=== PATIENT | female | born 1980 | race Caucasian/White ===

== ENCOUNTER 2023-08-18 14:55 | Emergency (ER) | payer MEDICAID, OTHER ==
[~2023-08-18] VITALS: Ht 172.7 cm; Wt 82.6 kg
--- NOTE | 2023-08-18 15:07 | ED Abdominal Pain ---
General Chief Complaint: Abdominal/GI Problems Stated Complaint: AB PAIN Source of Information: Patient, EMS Exam Limitations: No Limitations History of Present Illness Date Seen by Provider: Aug 18, 2023 Time Seen by Provider: 14:54 Initial Comments 42-year-old female presents to the emergency department today for abdominal pain. She states symptoms present since Saturday and she points to her lower pelvic region as a source of the pain. She states she is also had diffuse diarrhea multiple times per day. No fevers or chills. No nausea or vomiting. Denies stating she has not had sex in 3 years. No vaginal symptoms. No urinary symptoms. She has not had any abdominal surgeries. She reportedly was looking for "pain relief" and went to her neighbor's house and took 2 blue capsules with letters printed on them. She does not know what this was. All other systems reviewed and negative except documented per HPI. Voice recognition software was used to help create this chart Allergies and Home Medications Allergies Coded Allergies: sulfamethoxazole (Verified Allergy, Intermediate, 08/18/23) CAUSES BLISTERS trimethoprim (Verified Allergy, Intermediate, 08/18/23) CAUSES BLISTERS Patient Home Medication List Home Medication List Reviewed: Yes Review of Systems Review of Systems Constitutional: see HPI Past Cpqflsi-[id number]-[id number] Hx Patient Social History Tobacco Use?: No Use of E-Cig and/or Vaping dev: No Substance use?: No Alcohol Use?: No Physical Exam Vital Signs Vital Signs - First Documented 08/18/23 14:56 Temp 36.2 Pulse 65 Resp 18 B/P (MAP) 80/49 (59) O2 Delivery Room Air Capillary Refill : Height/Weight/BMI Height: '" Weight: lbs. oz. kg; BMI Method: General Appearance: other (Patient is writhing in the bed.) HEENT: normal ENT inspection, pharynx normal Neck: non-tender, full range of motion, supple Respiratory: chest non-tender, lungs clear, normal breath sounds, no respiratory distress, no accessory muscle use Cardiovascular: regular rate, rhythm, no murmur Gastrointestinal: soft, other (Abdominal exam is inconsistent. She points to her lower abdominal, upper pelvic region as the source of her pain. When I press on this area and she is talking she does not seem to have any pain however when she is not talking she seems to have severe pain even with light pressure. There is no obvious rebound or guarding. No mass organomegaly. No skin changes.) Extremities: non-tender, normal capillary refill Back: no CVA tenderness Neurologic/Psychiatric: alert, oriented x 3 Skin: normal color, warm/dry Progress/Results/Core Measures Results/Orders Lab Results Laboratory Tests Test 08/18/23 15:05 08/18/23 16:21 Range/Units White Blood Count 14.1 H 4.3-11.0 10^3/uL Red Blood Count 5.05 3.80-5.11 10^6/uL Hemoglobin 10.7 L 11.5-16.0 g/dL Hematocrit 37 35-52 % Mean Corpuscular Volume 73 L 80-99 fL Mean Corpuscular Hemoglobin 21 L 25-34 pg Mean Corpuscular Hemoglobin Concent 29 L 32-36 g/dL Red Cell Distribution Width 17.4 H 10.0-14.5 % Platelet Count 564 H 130-400 10^3/uL Mean Platelet Volume 11.0 9.0-12.2 fL Immature Granulocyte % (Auto) 0 % Neutrophils (%) (Auto) 63 42-75 % Lymphocytes (%) (Auto) 31 12-44 % Monocytes (%) (Auto) 4 0-12 % Eosinophils (%) (Auto) 2 0-10 % Basophils (%) (Auto) 0 0-10 % Neutrophils # (Auto) 8.8 H 1.8-7.8 X 10^3 Lymphocytes # (Auto) 4.4 H 1.0-4.0 X 10^3 Monocytes # (Auto) 0.6 0.0-1.0 X 10^3 Eosinophils # (Auto) 0.2 0.0-0.3 10^3/uL Basophils # (Auto) 0.0 0.0-0.1 10^3/uL Immature Granulocyte # (Auto) 0.0 0.0-0.1 10^3/uL Neutrophils % (Manual) 54 % Lymphocytes % (Manual) 42 % Monocytes % (Manual) 2 % Eosinophils % (Manual) 2 % Basophils % (Manual) 0 % Band Neutrophils 0 % Anisocytosis SLIGHT Elliptocytes SLIGHT Sodium Level 139 135-145 MMOL/L Potassium Level 3.3 L 3.6-5.0 MMOL/L Chloride Level 107 98-107 MMOL/L Carbon Dioxide Level 21 21-32 MMOL/L Anion Gap 11 5-14 MMOL/L Blood Urea Nitrogen 15 7-18 MG/DL Creatinine 0.79 0.60-1.30 MG/DL Estimat Glomerular Filtration Rate 97 BUN/Creatinine Ratio 19 Glucose Level 188 H 70-105 MG/DL Calcium Level 9.5 8.5-10.1 MG/DL Corrected Calcium 9.4 8.5-10.1 MG/DL Total Bilirubin 0.6 0.1-1.0 MG/DL Aspartate Amino Transf (AST/SGOT) 18 5-34 U/L Alanine Aminotransferase (ALT/SGPT) 11 0-55 U/L Alkaline Phosphatase 80 40-136 U/L Total Protein 7.5 6.4-8.2 GM/DL Albumin 4.1 3.2-4.5 GM/DL Lipase 12 8-78 U/L Serum Test, Qualitative NEGATIVE NEGATIVE Urine Color YELLOW Urine Clarity CLEAR Urine pH 5.5 5-9 Urine Specific [place] 1.020 1.016-1.022 Urine Protein NEGATIVE NEGATIVE Urine Glucose (UA) NEGATIVE NEGATIVE Urine Ketones NEGATIVE NEGATIVE Urine Nitrite NEGATIVE NEGATIVE Urine Bilirubin NEGATIVE NEGATIVE Urine Urobilinogen 0.2 < = 1.0 MG/DL Urine Leukocyte Esterase NEGATIVE NEGATIVE Urine RBC (Auto) NEGATIVE NEGATIVE Urine RBC RARE /HPF Urine WBC NONE /HPF Urine Squamous Epithelial Cells RARE /HPF Urine Crystals NONE /LPF Urine Bacteria NEGATIVE /HPF Urine Casts NONE /LPF Urine Mucus NEGATIVE /LPF Urine Culture Indicated NO My Orders Orders - BRIANNAHUGO DO Comprehensive Metabolic Panel (08/18/23 15:03) Lipase (08/18/23 15:03) Hcg,Qualitative Serum (08/18/23 15:03) Ua Culture If Indicated (08/18/23 15:03) Cbc With Automated Diff (08/18/23 15:03) Ct Abdomen/Pelvis W (08/18/23 15:03) Ketorolac Injection (Ketorolac Injection (08/18/23 15:15) Iohexol Injection (Omnipaque 350 Mg/Ml 1 (08/18/23 15:15) Received Contrast (Hold Metformin- Contr (08/18/23 15:15) Ns (Ivpb) 100 Ml (Sodium Chloride 0.9% 1 (08/18/23 15:15) Dicyclomine Injection (Dicyclomine Injec (08/18/23 15:10) Dicyclomine Injection (Dicyclomine Injec (08/18/23 15:12) Manual Differential (08/18/23 15:05) Iv/Invasive Line Insertion .IV INSERT (08/18/23 15:29) Ns Iv 1000 Ml (Ns Iv 1000 Ml) (08/18/23 15:29) Medications Given in ED Current Medications Medications Dose Ordered Sig/Jorge Route Start Time Stop Time Status Last Admin Dose Admin Iohexol 100 ml ONCE ONCE IV 08/18/23 15:15 08/18/23 15:18 DC 08/18/23 15:48 80 ML Ketorolac Tromethamine 15 mg ONCE ONCE IVP 08/18/23 15:15 08/18/23 15:16 DC 08/18/23 15:13 15 MG Sodium Chloride 100 ml ONCE ONCE IV 08/18/23 15:15 08/18/23 15:18 DC 08/18/23 15:48 100 ML Vital Signs/I&O 08/18/23 14:56 Temp 36.2 Pulse 65 Resp 18 B/P (MAP) 80/49 (59) O2 Delivery Room Air Departure Communication (Admissions) Patient is hemodynamically stable. She has a nonsurgical abdominal exam. test is negative and CT scan obtained. This shows likely enteritis and mass in the uterus consistent with likely fibroid but carcinoma cannot be ruled out. Her pain is greatly improved with IM Bentyl and IV Toradol. She is tolerating p.o. without difficulty. Her labs are reassuring and there is some mild hypokalemia. To be discharged home with Bentyl, Toradol and gynecology follow-up. Impression Primary Impression: Enteritis Additional Impression: Uterine fibroid Qualified Codes: D25.9 - Leiomyoma of uterus, unspecified Disposition: 01 HOME, SELF-CARE Condition: Stable Departure-Patient Inst. Referrals: ANDRE AMADO DO Patient Instructions: Uterine fibroids, Viral Gastroenteritis, Adult (DC) Add. Discharge Instructions: Increase your fluids at home and rest. Use the Bentyl as needed for abdominal pain. Follow-up by calling to schedule an appointment with Dr. AMADO, gynecology, regarding your uterine fibroids. Emergency department for any severe concerns. All discharge instructions reviewed with patient and/or family. Voiced understanding. Scripts Ketorolac Tromethamine (Ketorolac Tromethamine) 10 Mg Tablet 10 MG PO TID for Pain for 3 Days, #9 TAB Prov: HUGO REED DO 08/18/23 Dicyclomine HCl (Dicyclomine HCl) 10 Mg Capsule 10 MG PO TID for pa for 5 Days, #15 CAP Prov: HUGO REED DO 08/18/23 HUGO REED DO Aug 18, 2023 15:07
[2023-08-18] MEDS ORDERED: DICYCLOMINE 10 MG/ML 2 ML AMPULE IM STA (15:10)
[2023-08-18 15:12] LABS: BASOPHILS % (AUTO) 0 % (0-10); EOSINOPHILS # (AUTO) 0.2 10^3/uL (0.0-0.3); EOSINOPHILS % (AUTO) 2 % (0-10); HEMATOCRIT 37 % (35-52); HEMOGLOBIN 10.7 g/dL (11.5-16.0); LYMPHOCYTES # (AUTO) 4.4 X 10^3 (1.0-4.0); LYMPHOCYTES % (AUTO) 31 % (12-44); MEAN CORPUSCULAR HEMOGLOBIN 21 pg (25-34); MEAN CORPUSCULAR HGB CONC 29 g/dL (32-36); MEAN CORPUSCULAR VOLUME 73 fL (80-99); MONOCYTES # (AUTO) 0.6 X 10^3 (0.0-1.0); MONOCYTES % (AUTO) 4 % (0-12); NEUTROPHILS # (AUTO) 8.8 X 10^3 (1.8-7.8); NEUTROPHILS % (AUTO) 63 % (42-75); PLATELET COUNT 564 10^3/uL (130-400); WHITE BLOOD COUNT 14.1 10^3/uL (4.3-11.0)
[2023-08-18] MEDS ORDERED: DICYCLOMINE 10 MG/ML 2 ML AMPULE IM ONE (15:12)
[2023-08-18] MEDS ORDERED: NS 100 ML (IVPB) BAG IV ONE (15:15)
[2023-08-18] MEDS ORDERED: HOLD METFORMIN - RECEIVED CONTRAST 20 ML VIAL IV SCH (15:15)
[2023-08-18] MEDS ORDERED: KETOROLAC INJ 15 MG/ML VIAL IVP ONE (15:15)
[2023-08-18] MEDS ORDERED: IOHEXOL 350 MG/ML 100 ML (OMNIPAQUE 350) VIAL IV ONE (15:15)
[2023-08-18] MEDS ORDERED: NS IV 1000 ML 1,000 ML IV STA (15:29)
[2023-08-18 15:33] LABS: ALBUMIN 4.1 GM/DL (3.2-4.5); POTASSIUM 3.3 MMOL/L (3.6-5.0)
[2023-08-18 15:34] LABS: CALCIUM 9.5 MG/DL (8.5-10.1)
[2023-08-18 15:35] LABS: TOTAL PROTEIN 7.5 GM/DL (6.4-8.2)
[2023-08-18 15:37] LABS: BILIRUBIN,TOTAL 0.6 MG/DL (0.1-1.0)
[2023-08-18 15:39] LABS: CREATININE SERUM 0.79 MG/DL (0.60-1.30)
[2023-08-18 16:01] LABS: ANISOCYTOSIS SLIGHT; BAND NEUTROPHILS 0 %; BASOPHILS % (MANUAL) 0 %; ELLIPT/OVALOCYTES SLIGHT; EOSINOPHILS % (MANUAL) 2 %; LYMPHOCYTES % (MANUAL) 42 %; MONOCYTES % (MANUAL) 2 %; NEUTROPHILS % (MANUAL) 54 %
--- NOTE | 2023-08-18 16:13 | Diagnostic Imaging Report ---
PROCEDURE: CT abdomen and pelvis with contrast. TECHNIQUE: Multiple contiguous axial images were obtained through the abdomen and pelvis after administration of intravenous contrast. Auto Exposure Controls were utilized during the CT exam to meet ALARA standards for radiation dose reduction. All CT scans use one or more of the following dose optimizing techniques: automated exposure control, MA and/or KvP adjustment based on patient size and exam type or iterative reconstruction. INDICATION: Diffuse abdominal pain with associated diarrhea that began two days prior. COMPARISON: None available. FINDINGS: The visualized lung bases are clear. The liver and spleen are unremarkable. The adrenal glands are unremarkable. The pancreas is unremarkable. The gallbladder is unremarkable. The kidneys are unremarkable. No aneurysmal dilatation of the abdominal aorta. Significant mural thickening and hyperenhancement of the duodenum as well as scattered loops of small bowel. This is associated with the colon being fluid filled throughout. No bowel obstruction. Tiny fat-containing umbilical hernia. No significant inflammatory stranding within the right lower quadrant. Potential 3.3 cm rounded lesion within the central aspect of the uterus. The uterus and adnexal structures are unremarkable for age. Small amount of free fluid within the pelvis. No free air or adenopathy. No acute osseous abnormality. IMPRESSION: Abnormal appearance of the small bowel, including the duodenum, felt to relate to underlying enteritis. This is associated with a fluid-filled colon and underlying diarrheal state. No evidence of bowel obstruction. Small amount of free fluid within the lower pelvis. Potential 3.3 cm rounded lesion within the central uterus. This is favored to relate to a fibroid. However, endometrial neoplasm needs to be excluded. Pelvic ultrasound is recommended for further evaluation. Dictated by: Dictated on workstation # [id number]
[2023-08-18 16:37] LABS: CLARITY,URINE CLEAR; COLOR,URINE YELLOW; GLUCOSE, URINE (UA) NEGATIVE (NEGATIVE); KETONES,URINE NEGATIVE (NEGATIVE); NITRITE,URINE NEGATIVE (NEGATIVE); PH,URINE 5.5 (5-9); PROTEIN,URINE NEGATIVE (NEGATIVE)
[2023-08-18 16:38] LABS: BACTERIA,URINE NEGATIVE /HPF; BILIRUBIN,URINE NEGATIVE (NEGATIVE); LEUKOCYTE ESTERASE ,URINE NEGATIVE (NEGATIVE); RBC,URINE RARE /HPF; SQUAMOUS EPITHELIAL CELL,UR RARE /HPF
[2023-08-18] MEDS ORDERED: DICY-11 PO (16:45)
[2023-08-18] MEDS ORDERED: KETO10TA PO (16:45)
[2023-08-18 16:54] VITALS: BP 102/59
== END 2023-08-18 16:54 | disposition home or self-care (01) ==
LOC: ER 14:58
DX: K52.9 Noninfective gastroenteritis and colitis, unspecified (principal); D25.9 Leiomyoma of uterus, unspecified; E87.6 Hypokalemia; Z28.310 Unvaccinated for COVID-19
CPT/HCPCS: 36415; 74177; 80053; 81000; 83690; 84703; 85007; 85027